=== PATIENT | male | born 1990 | race Caucasian/White ===

== ENCOUNTER → 2024-03-29 | Outpatient (CLI) | payer BC ==
--- NOTE | 2024-03-29 08:44 | US ---
EXAMINATION TYPE: US scrotum with doppler. DATE OF EXAM: 03/29/2024 COMPARISON: NONE CLINICAL INDICATION: Male, 33 years old with history of N50.811 RIGHT TESTICULAR PAIN N50.89 OTHER SP ECIFI; inferior right testicle pain and patient feels small lump, ongoing for a few weeks, no injury, no swelling TECHNIQUE: Grayscale, color Doppler and spectral Doppler imaging of the scrotum. FINDINGS: EXAM MEASUREMENTS: TESTICLES: Right Testicle: 3.9 x 3.5 x 3.0 cm Left Testicle: 4.1 x 2.7 x 3.6 cm EPIDIDYMIS HEAD: Right Epididymis: 1.0 cm, subcentimeter cyst within the head Left Epididymis: 1.4 cm Doppler performed to assess for testicular vascularity; good bilateral color flow and waveforms are s een. There is no evidence of testicular torsion. Presence of hydroceles: mild bilaterally, but more on the left Presence of varicoceles: right inferior varicose seen IMPRESSION: 1. No evidence of testicular torsion or intratesticular mass. 2. Right-sided varicocele. Further evaluation with CT abdomen pelvis is recommended to rule out obstr ucting mass downstream of the testicular vein. 3. Small bilateral hydroceles left greater than right. [facility], , 03/29/2024 8:41 AM
== END | disposition home or self-care (01) ==
LOC: RADUSWWP 07:51
PROVIDERS: ATTEND Pediatrics
CPT/HCPCS: 76870; 93975

== ENCOUNTER → 2024-04-12 | Outpatient (CLI) | payer BC ==
--- NOTE | 2024-04-12 16:56 | CT ---
EXAMINATION TYPE: CT abdomen pelvis w con DATE OF EXAM: 04/12/2024 4:25 PM COMPARISON: None available. CLINICAL INDICATION: Male, 33 years old with history of I86.1 SCROTAL VARICES; Pain in rt testical. S crotal varices. Blood in urine x2wks. TECHNIQUE: Axial CT abdomen pelvis w con;Sagittal and coronal reformats were created on a separate w orkstation. Contrast used:100 ml mL of Isovue 300 with IV Contrast, (none if empty) Oral contrast used: without Oral Contrast (none if empty) CT DLP: 1230.9 mGycm, Automated exposure control for dose reduction was used. FINDINGS: LOWER CHEST: Unremarkable ABDOMEN Liver unremarkable. Portal veins appear patent. Gallbladder unremarkable. Spleen normal in size and m orphology. No suspicious adrenal gland nodule. Kidneys enhance symmetrical bilaterally. No hydronephr osis or hydroureter. Abdominal aorta normal in caliber. No pathologic retroperitoneal lymphadenopathy . Retroaortic left renal vein incidentally noted. No pathologic mesenteric lymphadenopathy. Imaging through the gastric intestinal tract demonstrates no evidence of small bowel obstruction. Nor mal chronic stool burden. No significant free fluid or free air in the abdomen/pelvis. Urinary bladder unremarkable. Prostate g land within normal limits for size. No pathologic pelvic or inguinal lymphadenopathy. No acute osseou s abnormality. IMPRESSION: No acute abnormality in the abdomen/pelvis or evidence of a retroperitoneal mass/pathologic lymphaden opathy. [facility], Workstation: [employer], 04/12/2024 4:54 PM
== END | disposition home or self-care (01) ==
LOC: RADCTMAIN 15:50
PROVIDERS: ATTEND Pediatrics
DX: I86.1 Scrotal varices (principal); R31.9 Hematuria, unspecified
CPT/HCPCS: 74177; Q9967